=== PATIENT | female | born 1935 | race Caucasian/White ===

== ENCOUNTER 2017-01-16 09:00 | Day surgery (SDC) | payer MEDICARE, BC ==
[~2017-01-16 09:00] MED LIST: Lactated Ringers 1,000 ML IV SCH; Sodium Chloride 0.9% 10 ML Syringe FLUSH PRN
[2017-01-16] MEDS ORDERED: Propofol 200 MG/20 ML SDV ONE ×2 (10:05)
[2017-01-16] MEDS ORDERED: Midazolam 1 MG/ML 2 ML SDV ONE ×2 (10:05)
[2017-01-16] MEDS ORDERED: Lidocaine 2% 5 ML SDV ONE (10:05)
[2017-01-16] MEDS ORDERED: fentaNYL 100 MCG/2 ML SDV ONE ×2 (10:05)
--- NOTE | 2017-01-16 10:32 | PCM.HPR ---
H & P Addendum review - H & P Addendum Review Date of Original H & P: 01/13/17 Date Reviewed: 01/16/17 Time Reviewed: 10:05 Patient was examined: No Changes (CXR shows Ba has passed into colon; ok to proceed with EGD)
--- NOTE | 2017-01-16 10:34 | PCM.OPNOTE ---
- General Post-Op/Procedure Note Date of Surgery/Procedure: 01/16/17 Operative Procedure(s): EGD with Bx Findings: Distal Esophageal inflammation Pre Op Diagnosis: Dysphasia, wt loss Post-Op Diagnosis: Same Anesthesia Technique: MAC Primary Surgeon: Billy Kaufman Anesthesia Provider: Chrissy Neal Pathology: Dist Esoph and Cardia EBL in mLs: 1 Complications: none Condition: Good
[2017-01-16 13:18] VITALS: BP 120/77
--- NOTE | 2017-01-16 14:50 | OR ---
Date of Procedure: 01/16/2017 PREOPERATIVE DIAGNOSIS: Dysphagia and weight loss. POSTOPERATIVE DIAGNOSES: 1. Dysphagia and weight loss. 2. Distal esophageal inflammation. PROCEDURE: EGD with biopsy. ANESTHESIA: IV sedation. HISTORY: This 81-year-old female was seen in the clinic earlier this week with dysphagia and a 30-pound weight loss over the last year. She is now having troubles even swallowing liquids. Had her do an esophagram with upper GI two days ago, which shows distal esophageal narrowing. Achalasia versus tumor was possible. She is here for upper endoscopy today. I did do a preoperative chest x-ray on her, which does show clearing of the barium into the colon. The patient was brought to the procedure room, where anesthetic gargle was given and IV sedation administered. Oral bite block was placed and the upper endoscope was advanced into the esophagus under direct vision without difficulty. Hypopharynx and vocal cords were viewed and appeared normal. Scope was advanced in to the distal esophagus where there was narrowing, but no obvious tumor. The scope did pass into the stomach with minimal pressure resulting in a small amount of bleeding. When I withdrew back into the stomach, there does appear to be some inflammation possibly even tumor. Retroflexion suggests also a possible tumor mass. I did multiple biopsies from the distal esophagus and upper cardia with retroflexion. The tissue was quite soft and friable and there was a concern for malignancy. The scope was advanced in to the third portion of the duodenum. The remaining duodenum and stomach were all normal in appearance. Air was removed from the stomach and the scope withdrawn. The patient tolerated the procedure well and returned to recovery in stable condition. However, take Ensure twice daily to try to maintain her nutritional status since liquids are passing through. I will discuss biopsy results. I will have her follow up with Meri Javier next week to review biopsy results. ATUL HART MD /[id number]
== END 2017-01-16 11:39 | disposition home or self-care (01) ==
LOC: LL.SDS 09:00
PROVIDERS: ATTEND Surgery
DX: C16.0 Malignant neoplasm of cardia (principal); Z79.899 Other long term (current) drug therapy
CPT/HCPCS: 00740; 43239; 71010; 88305; 88342; J2250; J2704; J3010; J7120